=== PATIENT | male | born 1965 | race Caucasian/White ===

== ENCOUNTER → 2018-09-27 | Emergency (ER) | payer OTHER ==
[~2018-09-27] VITALS: Ht 177.8 cm; Wt 81.6 kg
== END | disposition home or self-care (01) ==
LOC: ER 18:39
DX: M54.16 Radiculopathy, lumbar region (principal)

== ENCOUNTER 2019-05-10 06:42 | Outpatient (CLI) | payer OTHER | END 2019-05-10 06:51 | disposition home or self-care (01) | LOC: LAB 06:42 | DX: E78.89 Other lipoprotein metabolism disorders (principal); R73.03 Prediabetes; N39.0 Urinary tract infection, site not specified; N40.0 Benign prostatic hyperplasia without lower urinary tract symptoms; E03.8 Other specified hypothyroidism; I10 Essential (primary) hypertension ==

== ENCOUNTER 2019-06-14 08:28 | Outpatient (CLI) | payer OTHER | END 2019-06-14 15:00 | disposition home or self-care (01) | LOC: LAB 08:28 | DX: M79.671 Pain in right foot (principal); M10.9 Gout, unspecified ==

== ENCOUNTER 2019-10-23 12:45 | Outpatient (CLI) | payer OTHER | END 2019-10-23 12:49 | disposition home or self-care (01) | LOC: TOM 12:45 | PROVIDERS: ATTEND General Practice | DX: M54.2 Cervicalgia (principal); M62.838 Other muscle spasm ==

== ENCOUNTER 2020-02-26 15:25 | Outpatient (CLI) | payer OTHER | END 2020-02-26 15:31 | disposition home or self-care (01) | LOC: RAD 15:25 | PROVIDERS: ATTEND General Practice | DX: M77.32 Calcaneal spur, left foot (principal); M25.572 Pain in left ankle and joints of left foot ==

== ENCOUNTER → 2020-05-17 12:15 | Outpatient (CLI) | payer OTHER | END | disposition home or self-care (01) | LOC: LAB 12:15 | PROVIDERS: ATTEND Internal Medicine | DX: I10 Essential (primary) hypertension (principal); M54.5 Low back pain; Z01.810 Encounter for preprocedural cardiovascular examination; G47.33 Obstructive sleep apnea (adult) (pediatric); G47.37 Central sleep apnea in conditions classified elsewhere; Z12.11 Encounter for screening for malignant neoplasm of colon ==

== ENCOUNTER 2020-05-19 07:25 | Outpatient (CLI) | payer OTHER | END 2020-05-19 07:31 | disposition home or self-care (01) | LOC: LAB 07:25 | PROVIDERS: ATTEND Internal Medicine | DX: I10 Essential (primary) hypertension (principal); M54.5 Low back pain; Z01.810 Encounter for preprocedural cardiovascular examination; G47.33 Obstructive sleep apnea (adult) (pediatric); G47.37 Central sleep apnea in conditions classified elsewhere; Z12.11 Encounter for screening for malignant neoplasm of colon ==

== ENCOUNTER → 2020-08-07 07:08 | Outpatient (CLI) | payer OTHER | END | disposition home or self-care (01) | LOC: LAB 07:08 | PROVIDERS: ATTEND General Practice | DX: N40.0 Benign prostatic hyperplasia without lower urinary tract symptoms (principal); G47.00 Insomnia, unspecified; E11.9 Type 2 diabetes mellitus without complications ==

== ENCOUNTER 2020-11-28 20:47 | Emergency (ER) | payer OTHER ==
[~2020-11-28] VITALS: Ht 177.8 cm; Wt 72.6 kg
[2020-11-28] MEDS ORDERED: TUSNEL LIQUID178 ML PO (23:56)
[2020-11-28] MEDS ORDERED: PROAIR RESPICL90 MCG IH (23:56)
[2020-11-28] MEDS ORDERED: ZITHROMAX500 MG PO (23:56)
[2020-11-28] MEDS ORDERED: MEDROLPACK PO (23:56)
== END 2020-11-29 01:40 | disposition home or self-care (01) ==
LOC: ER 20:47
DX: U07.1 COVID-19 (principal)

== ENCOUNTER 2021-01-31 08:35 | Outpatient (CLI) | payer OTHER ==
[~2021-01-31 08:35] MED LIST: MEDROLPACK PO; PROAIR RESPICL90 MCG IH; TUSNEL LIQUID178 ML PO; ZITHROMAX500 MG PO
== END 2021-01-31 08:36 | disposition home or self-care (01) ==
LOC: LAB 08:35
PROVIDERS: ATTEND Internal Medicine
DX: I10 Essential (primary) hypertension (principal); M54.59 Other low back pain; G47.33 Obstructive sleep apnea (adult) (pediatric); G47.37 Central sleep apnea in conditions classified elsewhere; N41.0 Acute prostatitis; N41.8 Other inflammatory diseases of prostate; Z12.11 Encounter for screening for malignant neoplasm of colon

== ENCOUNTER 2021-04-04 13:12 | Outpatient (CLI) | payer OTHER | END 2021-04-04 13:15 | disposition home or self-care (01) | LOC: RAD 13:12 | PROVIDERS: ATTEND General Practice | DX: M79.671 Pain in right foot (principal); M77.31 Calcaneal spur, right foot ==

== ENCOUNTER 2021-07-24 15:37 | Outpatient (CLI) | payer OTHER | END 2021-07-24 15:44 | disposition home or self-care (01) | LOC: RAD 15:37 | PROVIDERS: ATTEND General Practice | DX: M54.2 Cervicalgia (principal); M54.14 Radiculopathy, thoracic region; M62.838 Other muscle spasm ==

== ENCOUNTER 2022-01-19 07:08 | Outpatient (CLI) | payer OTHER | END 2022-01-19 07:49 | disposition home or self-care (01) | LOC: LAB 07:08 | PROVIDERS: ATTEND General Practice | DX: N40.0 Benign prostatic hyperplasia without lower urinary tract symptoms (principal); I10 Essential (primary) hypertension; R73.9 Hyperglycemia, unspecified ==

== ENCOUNTER 2022-01-23 07:09 | Outpatient (CLI) | payer OTHER | END 2022-01-23 07:10 | disposition home or self-care (01) | LOC: LAB 07:09 | PROVIDERS: ATTEND General Practice | DX: R73.9 Hyperglycemia, unspecified (principal) ==

== ENCOUNTER 2022-06-05 09:56 | Outpatient (CLI) | payer OTHER | END 2022-06-05 23:00 | disposition home or self-care (01) | LOC: LAB 09:56 | PROVIDERS: ATTEND Internal Medicine Cardiovascular Disease | DX: I10 Essential (primary) hypertension (principal); E11.9 Type 2 diabetes mellitus without complications; G47.33 Obstructive sleep apnea (adult) (pediatric); J30.9 Allergic rhinitis, unspecified ==

== ENCOUNTER 2022-07-13 07:12 | Outpatient (CLI) | payer OTHER | END 2022-07-13 07:18 | disposition home or self-care (01) | LOC: LAB 07:12 | PROVIDERS: ATTEND General Practice | DX: R30.0 Dysuria (principal); N40.1 Benign prostatic hyperplasia with lower urinary tract symptoms; N39.0 Urinary tract infection, site not specified ==

== ENCOUNTER 2022-07-13 07:13 | Outpatient (CLI) | payer OTHER | END 2022-07-13 07:26 | disposition home or self-care (01) | LOC: SONOGRAMA 07:13 | PROVIDERS: ATTEND General Practice | DX: N40.1 Benign prostatic hyperplasia with lower urinary tract symptoms (principal); R30.0 Dysuria; R31.9 Hematuria, unspecified ==

== ENCOUNTER 2022-12-21 03:55 | Emergency (ER) | payer OTHER ==
[~2022-12-21] VITALS: Ht 170.2 cm; Wt 81.6 kg
== END 2022-12-21 06:31 | disposition home or self-care (01) ==
LOC: ER 03:55
DX: R07.89 Other chest pain (principal)

== ENCOUNTER 2022-12-29 08:03 | Outpatient (CLI) | payer OTHER | END 2022-12-29 08:07 | disposition home or self-care (01) | LOC: SONOGRAMA 08:03 | DX: M54.2 Cervicalgia (principal); R10.11 Right upper quadrant pain ==

== ENCOUNTER 2023-01-22 12:05 | Emergency (ER) | payer OTHER ==
[~2023-01-22] VITALS: Ht 170.2 cm; Wt 81.6 kg
[2023-01-22 14:25] LABS: HEMOGLOBIN 15.7 g/dL (13-16.00); MEAN CELL VOLUME 92.6 fL (80.0-100.00); MEAN CORPUSCULAR HGB CONC 33.5 g/dl (32.0-36.0); PLATELET COUNT 179 K/uL (150-450); RED BLOOD COUNT 5.08 M/uL (4.00-6.00); RED CELL DISTRIBUTION WIDTH 13.1 % (11.5-14.5)
== END 2023-01-22 16:41 | disposition home or self-care (01) ==
LOC: ER 12:05
PROVIDERS: General Practice
DX: J10.1 Influenza due to other identified influenza virus with other respiratory manifestations (principal); Z20.822 Contact with and (suspected) exposure to COVID-19

== ENCOUNTER 2023-03-29 07:15 | Emergency (ER) | payer OTHER ==
[~2023-03-29] VITALS: Ht 170.2 cm; Wt 81.6 kg
[2023-03-29 09:52] LABS: HEMATOCRIT 45.9 % (39.0-48.0); HEMOGLOBIN 15.7 g/dL (13-16.00); MEAN CELL VOLUME 90.8 fL (80.0-100.00); MEAN CORPUSCULAR HEMOGLOBIN 31.1 pg (27.00-32.0); MEAN CORPUSCULAR HGB CONC 34.3 g/dl (32.0-36.0); PLATELET COUNT 207 K/uL (150-450); RED BLOOD COUNT 5.06 M/uL (4.00-6.00); RED CELL DISTRIBUTION WIDTH 13.9 % (11.5-14.5)
== END 2023-03-29 11:14 | disposition home or self-care (01) ==
LOC: ER 07:16
PROVIDERS: General Practice
DX: H57.12 Ocular pain, left eye (principal); Z20.822 Contact with and (suspected) exposure to COVID-19

== ENCOUNTER 2023-07-25 10:22 | Outpatient (CLI) | payer OTHER ==
[2023-07-25 11:22] LABS: PH,URINE 5.5 (5.0-8.0); URINE APPEARANCE Cloudy; URINE BILIRRUBIN Negative (NEGATIVE); URINE BLOOD Negative; URINE COLOR Yellow; URINE GLUCOSE Negative (NEGATIVE); URINE LEUKOCYTE Negative; URINE NITRATE Negative; URINE PROTEIN Trace (NEGATIVE); URINE UROBILINOGEN 0.2 E.U./dl
[2023-07-25 11:26] LABS: URINE BACTERIA 13.8 uL (0.0-1933); URINE EPITHELIAL CELLS 5.8 uL (0.0-38.8); URINE WBC 7.8 uL (0.0-23.2)
[2023-07-25 11:37] LABS: HEMATOCRIT 45.8 % (39.0-48.0); HEMOGLOBIN 15.5 g/dL (13-16.00); MEAN CELL VOLUME 92.1 fL (80.0-100.00); MEAN CORPUSCULAR HEMOGLOBIN 31.3 pg (27.00-32.0); MEAN CORPUSCULAR HGB CONC 33.9 g/dl (32.0-36.0); PLATELET COUNT 230 K/uL (150-450); RED BLOOD COUNT 4.97 M/uL (4.00-6.00); RED CELL DISTRIBUTION WIDTH 13.4 % (11.5-14.5)
[2023-07-25 12:38] LABS: ALBUMIN 3.7 gm/dL (3.4-5.0); BILIRUBIN TOTAL 0.81 mg/dL (0.3-1.2); CREATININE SERUM 0.74 mg/dL (0.70-1.30); GFR 107.89; GLOBULINA 3.5 G/DL (2.4-3.5); POTASSIUM 4.02 mEq/L (3.5-5.1); PROSTATIC SPECIFIC ANTIGEN 0.955 NG/ML (0.010-4.00); T4 TOTAL 7.36 UG/DL (4.5-12.1); TOTAL PROTEIN 7.2 gm/dL (6.4-8.2); TSH 0.613 uIU/mL (0.358-3.74)
== END 2023-07-25 10:27 | disposition home or self-care (01) ==
LOC: LAB 10:22
PROVIDERS: ATTEND Internal Medicine
DX: I10 Essential (primary) hypertension (principal); G47.33 Obstructive sleep apnea (adult) (pediatric); G47.37 Central sleep apnea in conditions classified elsewhere; N41.0 Acute prostatitis; N41.8 Other inflammatory diseases of prostate

== ENCOUNTER → 2024-01-21 10:29 | Outpatient (CLI) | payer OTHER ==
[2024-01-21 11:34] LABS: URINE APPEARANCE Clear; URINE BILIRRUBIN Negative (NEGATIVE); URINE BLOOD Negative; URINE COLOR Yellow; URINE GLUCOSE Negative (NEGATIVE); URINE KETONE Negative (NEGATIVE); URINE LEUKOCYTE Negative; URINE NITRATE Negative; URINE PROTEIN Negative (NEGATIVE); URINE UROBILINOGEN 0.2 E.U./dl
[2024-01-21 11:37] LABS: HEMATOCRIT 44.8 % (39.0-48.0); HEMOGLOBIN 15.5 g/dL (13-16.00); MEAN CELL VOLUME 91.2 fL (80.0-100.00); MEAN CORPUSCULAR HEMOGLOBIN 31.6 pg (27.00-32.0); MEAN CORPUSCULAR HGB CONC 34.6 g/dl (32.0-36.0); PLATELET COUNT 218 K/uL (150-450); RED BLOOD COUNT 4.91 M/uL (4.00-6.00); RED CELL DISTRIBUTION WIDTH 13.3 % (11.5-14.5)
[2024-01-21 11:38] LABS: URINE BACTERIA 16.3 uL (0.0-1933); URINE RBC 7.3 uL (0.0-20.8); URINE WBC 3.8 uL (0.0-23.2)
[2024-01-21 12:11] LABS: ALBUMIN 3.7 gm/dL (3.4-5.0); BILIRUBIN TOTAL 0.45 mg/dL (0.3-1.2); CALCIUM 9.2 mg/dL (8.5-10.1); CHOL HDL RATIO 4.2 (0-5.0); CREATININE SERUM 0.79 mg/dL (0.70-1.30); GFR 100.05; GLOBULINA 3.7 G/DL (2.4-3.5); POTASSIUM 4.49 mEq/L (3.5-5.1); PROSTATIC SPECIFIC ANTIGEN 1.08 NG/ML (0.010-4.00); TOTAL PROTEIN 7.4 gm/dL (6.4-8.2)
== END | disposition home or self-care (01) ==
LOC: LAB 10:29
PROVIDERS: ATTEND Internal Medicine
DX: I10 Essential (primary) hypertension (principal); G47.33 Obstructive sleep apnea (adult) (pediatric); G47.37 Central sleep apnea in conditions classified elsewhere; N41.0 Acute prostatitis; N41.8 Other inflammatory diseases of prostate

== ENCOUNTER 2024-06-01 17:03 | Outpatient (CLI) | payer OTHER | END 2024-06-01 17:43 | disposition home or self-care (01) | LOC: RAD 17:03 | PROVIDERS: ATTEND Surgery Surgery of the Hand | DX: L03.011 Cellulitis of right finger (principal) ==

== ENCOUNTER 2024-10-29 19:22 | Emergency (ER) | payer OTHER ==
[~2024-10-29] VITALS: Ht 172.7 cm; Wt 98.0 kg
[~2024-10-29 19:22] MED LIST changes: -PREGABALIN75 MG PO; -ROPINIROLE HCL2 MG
[2024-10-29] MEDS ORDERED: ROPINIROLE HCL2 MG (19:32)
[2024-10-29] MEDS ORDERED: PREGABALIN75 MG PO (20:49)
== END 2024-10-29 21:20 | disposition home or self-care (01) ==
LOC: ER 19:22
DX: G25.81 Restless legs syndrome (principal)

== ENCOUNTER → 2024-10-29 | Emergency (ER) | payer OTHER ==
[~2024-10-29] VITALS: Ht 177.8 cm; Wt 86.2 kg
[~2024-10-29] MED LIST changes: +PREGABALIN75 MG PO; +ROPINIROLE HCL2 MG
== END | disposition home or self-care (01) ==
LOC: ER 02:31
DX: G25.81 Restless legs syndrome (principal); G47.33 Obstructive sleep apnea (adult) (pediatric)

== ENCOUNTER 2024-12-18 08:30 | Outpatient (CLI) | payer OTHER ==
[~2024-12-18 08:30] MED LIST changes: +PREGABALIN75 MG PO; +ROPINIROLE HCL2 MG
== END 2024-12-18 08:32 | disposition home or self-care (01) ==
LOC: RAD 08:30
PROVIDERS: ATTEND General Practice
DX: Z01.812 Encounter for preprocedural laboratory examination (principal); Z11.1 Encounter for screening for respiratory tuberculosis

== ENCOUNTER → 2024-12-18 08:39 | Outpatient (CLI) | payer OTHER ==
[2024-12-18 09:25] LABS: BASO % 0.9 % (0.1-1.2); EOS # 0.32 (0.04-0.54); EOS % 3.9 % (0.7-7.0); LYMPH # 2.34 (1.18-3.74); LYMPH % 28.9 % (19.3-53.1); MEAN PLATELET VOLUME 9.50 fl (9.4-12.4); MONO # 0.97 (0.24-0.82); MONO % 12.0 % (4.7-12.5); NEUT # 4.38 (1.56-6.13); NEUT % 53.9 % (34.0-71.1); RED CELL DISTRIBUTION WIDTH 12.3 % (11.6-14.4)
[2024-12-18 09:28] LABS: URINE APPEARANCE Clear; URINE BILIRRUBIN Negative (NEGATIVE); URINE BLOOD Negative; URINE COLOR Yellow; URINE GLUCOSE Negative (NEGATIVE); URINE KETONE Negative (NEGATIVE); URINE LEUKOCYTE Negative; URINE NITRATE Negative; URINE PROTEIN Negative (NEGATIVE); URINE UROBILINOGEN 0.2 E.U./dl
[2024-12-18 09:29] LABS: URINE BACTERIA 10.7 uL (0.0-1933); URINE EPITHELIAL CELLS 2.3 uL (0.0-38.8); URINE RBC 9.2 uL (0.0-20.8); URINE WBC 11.8 uL (0.0-23.2)
[2024-12-18 09:43] LABS: URINE CAST 0.00 uL (0.0-1.40)
[2024-12-18 10:55] LABS: ALT/SGPT 29.0 U/L (12-78); AST/SGOT 17.0 U/L (15-37); BILIRUBIN TOTAL 0.6 mg/dL (0.3-1.2); BUN CREA RATIO 28.0 (7.0-25.0); CHOL HDL RATIO 4.4 (0-5.0); CREATININE SERUM 0.68 mg/dL (0.70-1.30); GFR 118.55; GLOBULINA 3.4 G/DL (2.4-3.5); GLUCOSE FASTING 95.0 mg/dL (65-100); HDL 38.0 mg/dl (40-60); LDL 112.0 mg/dl (0-130); OSMOLALITY SERUM 283.0 MOSM/KG (275-295); PROSTATIC SPECIFIC ANTIGEN 1.16 NG/ML (0.010-4.00); T4 TOTAL 7.67 UG/DL (4.5-12.1); TSH 0.711 uIU/mL (0.358-3.74); VLDL 17.0 (0-39)
== END | disposition home or self-care (01) ==
LOC: LAB 08:39
PROVIDERS: ATTEND General Practice
DX: N40.0 Benign prostatic hyperplasia without lower urinary tract symptoms (principal); E78.00 Pure hypercholesterolemia, unspecified; N39.0 Urinary tract infection, site not specified; I10 Essential (primary) hypertension

== ENCOUNTER → 2024-12-26 07:15 | Outpatient (CLI) | payer OTHER ==
[2024-12-26 08:11] LABS: FE 78.0 ug/dl (65-175)
== END | disposition home or self-care (01) ==
LOC: LAB 07:15
DX: E61.1 Iron deficiency (principal)